=== PATIENT | male | born 1980 | race Caucasian/White ===

== ENCOUNTER 2017-07-18 09:43 | Outpatient (CLI) | payer OTHER ==
[2015-05-07 15:49] VITALS: BMI 34.7
== END 2017-07-18 09:44 | disposition home or self-care (01) ==
LOC: RHC-LAB 09:43
PROVIDERS: ATTEND Emergency Medicine
DX: Z00.00 Encounter for general adult medical examination without abnormal findings (principal)
CPT/HCPCS: 36415; 80053; 80061; 84443; 85025